=== PATIENT | male | born 1990 | race Caucasian/White ===

== ENCOUNTER 2016-08-16 12:17 | Inpatient (IN) | payer BC, OTHER ==
[2016-08-16 14:22] VITALS: BMI 22.3
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
[2016-08-16] MEDS ORDERED: diphenhydrAMINE HCL 50 MG CAPSULE PO PRN (19:37)
[2016-08-16] MEDS ORDERED: MAG HYDROX/AL HYDROX/SIMETH 30 ML UNIT-DOSE CUP PO PRN (19:37)
[2016-08-16] MEDS ORDERED: MAGNESIUM CITRATE 300 ML BOTTLE PO PRN (19:37)
[2016-08-16] MEDS ORDERED: METHADONE HCL 10 MG TABLET (FOR DETOX USE ONLY) PO ONE ×2 (19:37→23:00)
[2016-08-16] MEDS ORDERED: P-EPHED 60MG/TRIPROLIDI 2.5MG TABLET PO PRN (19:37)
[2016-08-16] MEDS ORDERED: MENTHOL/PHENOL 1 EACH UD MM PRN (19:37)
[2016-08-16] MEDS ORDERED: MAGNESIUM HYDROX 2400MG/30ML ORAL SUSPENSION 30 ML CUP PO PRN (19:37)
[2016-08-16] MEDS ORDERED: LOPERAMIDE HCL 2 MG CAPSULE PO PRN (19:37)
[2016-08-16] MEDS ORDERED: diazePAM 5 MG TABLET PO ONE (19:37)
[2016-08-16] MEDS ORDERED: ACETAMINOPHEN 325 MG TABLET (FP) PO PRN (19:37)
[2016-08-16] MEDS ORDERED: guaiFENesin/D-METHORPHAN HB 10 ML UNIT-DOSE CUPS PO PRN (19:37)
[2016-08-16] MEDS ORDERED: NICOTINE POLACRILEX 2 MG GUM BC PRN (19:43)
[2016-08-16] MEDS: diazePAM 5 MG TABLET PO SCH (22:31)
[2016-08-16] MEDS: THIAMINE HCL 100 MG TABLET (FP) PO SCH (22:31)
[2016-08-16] MEDS: IBUPROFEN 400 MG TABLET (FP) PO PRN (22:34)
[2016-08-17] MEDS: diazePAM 5 MG TABLET PO SCH ×3 (07:09→23:12)
[2016-08-17] MEDS ORDERED: METHADONE HCL 10 MG TABLET (FOR DETOX USE ONLY) PO SCH (10:00)
[2016-08-17 10:20] LABS: ALBUMIN 4.4 g/dl (3.4-5.0); ALK PHOS 61 U/L (45-117); ANION GAP 4 (8-16); BILIRUBIN,TOTAL 0.4 mg/dL (0.2-1.0); CALCIUM 9.6 mg/dL (8.5-10.1); CO2 31 mmol/L (21-32); CREATININE 1.1 mg/dL (0.7-1.3); GLUCOSE,RANDOM 93 mg/dL (74-106); SGOT/AST 20 U/L (15-37); SGPT/ALT 18 U/L (12-78); TOT PROT 7.6 g/dl (6.4-8.2)
[2016-08-17] MEDS: diazePAM 5 MG TABLET PO PRN ×2 (10:32→22:51)
[2016-08-17] MEDS: PRENATAL VITAMINS W/ FOLIC ACID TABLET (FP) PO SCH (10:32)
[2016-08-17] MEDS: NICOTINE 21 MG/24 HOURS TOPICAL PATCH TD SCH (10:33)
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
[2016-08-17 10:56] LABS: HIV 1 & 2 AB NEGATIVE; HIV 1 AGp24 NEGATIVE
[2016-08-17 11:08] LABS: MCHC 33.5 g/dl (32.0-35.9); MEAN CELL VOLUME 86.6 fl (80-96); MEAN PLT VOLUME 8.8 fl (7.5-11.1); PLATELET COUNT 267 K/MM3 (134-434); RDW 12.7 % (11.9-15.9); WHITE BLOOD COUNT 8.4 K/mm3 (4.0-10.0)
--- NOTE | 2016-08-17 11:24 | PN ---
[facility] CIWA - CIWA Score Nausea/Vomitin-Mild Nausea/No Vomiting Muscle Tremors: 4-Moderate,w/Arms Extend Anxiety: 3 Agitation: 4-Moderately Restless Paroxysmal Sweats: 3 Orientation: 0-Oriented Tacttile Disturbances: 0-None Auditory Disturbances: 0-None Visual Disturbances: 0-None Headache: 0-None Present CIWA-Ar Total Score: 15 BHS COWS - Scale Resting Pulse: 1= [place] 81-100 Sweatin=Flushed/Facial Moisture Restless Observation: 1= Difficult to Sit Still Pupil Size: 0= Normal to Room Light Bone or Joint Aches: 2= Severe Diffuse Aches Runny Nose/ Eye Tearin= Runny Nose/Eyes GI Upset > 30mins: 2= Nausea/Diarrhea Tremor Observation of Outstretched Hands: 2= Slight Tremor Visible Yawning Observation: 2= >3x During Session Anxiety or Irritability: 2=Irritable/Anxious Goose Flesh Skin: 0=Smooth Skin COWS Score: 16 S Progress Note (SOAP) Subjective: agitation anxiety sweats shakes interrupted sleep body aches irritable nausea Objective: 08/17/16 11:23 Vital Signs Temperature 97.2 F L 08/17/16 10:08 Pulse Rate 76 08/17/16 10:08 Respiratory Rate 16 08/17/16 10:08 Blood Pressure 121/67 08/17/16 10:08 O2 Sat by Pulse Oximetry (%) Laboratory Tests 08/16/16 08/17/16 08/17/16 06:00 06:00 06:00 WBC 8.4 RBC 4.93 Hgb 14.3 Hct 42.7 MCV 86.6 MCHC 33.5 RDW 12.7 Plt Count 267 MPV 8.8 Sodium 140 Potassium 4.9 Chloride 105 Carbon Dioxide 31 Anion Gap 4 L BUN 17 D Creatinine 1.1 Creat Clearance w eGFR > 60 Random Glucose 93 Calcium 9.6 Total Bilirubin 0.4 D AST 20 D ALT 18 Alkaline Phosphatase 61 Total Protein 7.6 Albumin 4.4 HIV 1&2 Antibody Screen Negative HIV P24 Antigen Negative labs pending awake/alert ambulating no acute distress Assessment: 08/17/16 11:23 withdrawal sx Plan: continue detox increase fluids labs pending
[2016-08-17] MEDS ORDERED: INFLUENZA VACCINE 45 MCG/0.5 ML (MDV 16-17) IM ONE (12:00)
[2016-08-17] MEDS: THIAMINE HCL 100 MG TABLET (FP) PO SCH (22:55)
--- NOTE | 2016-08-18 09:53 | PN ---
S COWS - Scale Resting Pulse: 1= [place] 81-100 Sweatin=Flushed/Facial Moisture Restless Observation: 3= Extraneous Movement Pupil Size: 1= Pupils >than Normal Bone or Joint Aches: 2= Severe Diffuse Aches Runny Nose/ Eye Tearin= Runny Nose/Eyes GI Upset > 30mins: 2= Nausea/Diarrhea Tremor Observation of Outstretched Hands: 2= Slight Tremor Visible Yawning Observation: 1= 1-2x During Session Anxiety or Irritability: 2=Irritable/Anxious Goose Flesh Skin: 0=Smooth Skin COWS Score: 18 BHS Progress Note (SOAP) Subjective: ALERT,IRRITABLE,ANXIOUS,INTERRUPTED SLEEP,TREMOR,PAIN IN THE BODY AND BACK Objective: 08/18/16 09:48 Vital Signs Temperature 98.1 F 08/18/16 09:30 Pulse Rate 87 08/18/16 09:30 Respiratory Rate 20 08/18/16 09:30 Blood Pressure 137/68 08/18/16 09:30 O2 Sat by Pulse Oximetry (%) Laboratory Last Values WBC 8.4 K/mm3 (4.0-10.0) 08/17/16 06:00 RBC 4.93 M/mm3 (4.00-5.60) 08/17/16 06:00 Hgb 14.3 GM/dL (11.7-16.9) 08/17/16 06:00 Hct 42.7 % (35.4-49) 08/17/16 06:00 MCV 86.6 fl (80-96) 08/17/16 06:00 MCHC 33.5 g/dl (32.0-35.9) 08/17/16 06:00 RDW 12.7 % (11.9-15.9) 08/17/16 06:00 Plt Count 267 K/MM3 (134-434) 08/17/16 06:00 MPV 8.8 fl (7.5-11.1) 08/17/16 06:00 Sodium 140 mmol/L (136-145) 08/17/16 06:00 Potassium 4.9 mmol/L (3.5-5.1) 08/17/16 06:00 Chloride 105 mmol/L (98-107) 08/17/16 06:00 Carbon Dioxide 31 mmol/L (21-32) 08/17/16 06:00 Anion Gap 4 (8-16) L 08/17/16 06:00 BUN 17 mg/dL (7-18) D 08/17/16 06:00 Creatinine 1.1 mg/dL (0.7-1.3) 08/17/16 06:00 Creat Clearance w eGFR > 60 (>60) 08/17/16 06:00 Random Glucose 93 mg/dL (74-106) 08/17/16 06:00 Calcium 9.6 mg/dL (8.5-10.1) 08/17/16 06:00 Total Bilirubin 0.4 mg/dL (0.2-1.0) D 08/17/16 06:00 AST 20 U/L (15-37) D 08/17/16 06:00 ALT 18 U/L (12-78) 08/17/16 06:00 Alkaline Phosphatase 61 U/L (45-117) 08/17/16 06:00 Total Protein 7.6 g/dl (6.4-8.2) 08/17/16 06:00 Albumin 4.4 g/dl (3.4-5.0) 08/17/16 06:00 RPR Titer Nonreactive (NONREACTIVE) 08/17/16 06:00 Hepatitis C Antibody >11.0 s/co ratio (0.0-0.9) H 08/17/16 06:00 HIV 1&2 Antibody Screen Negative 08/16/16 06:00 HIV P24 Antigen Negative 08/16/16 06:00 PATIENT HAS HISTORY OF HEPATITIA C FOR 2 MONTHS HAS BEEN FOLLOWED UP BY PMD AND SPECIALIST Assessment: 08/18/16 09:53 WITHDRAWAL SYMPTOM Plan: CONTINUE DETOX
[2016-08-18] MEDS: PRENATAL VITAMINS W/ FOLIC ACID TABLET (FP) PO SCH (09:55)
[2016-08-18] MEDS: diazePAM 5 MG TABLET PO SCH ×3 (09:55→23:32)
[2016-08-18] MEDS ORDERED: CYCLOBENZAPRINE HCL 10 MG TABLET (FP) PO ONE (09:55)
[2016-08-18] MEDS: METHADONE HCL 5 MG TABLET (FOR DETOX USE ONLY) PO SCH (09:55)
--- NOTE | 2016-08-18 10:34 | EKG ---
Test Reason : Blood Pressure : / mmHG Vent. Rate : 083 BPM Atrial Rate : 083 BPM P-R Int : 174 ms QRS Dur : 112 ms QT Int : 386 ms P-R-T Axes : 064 051 063 degrees QTc Int : 453 ms NORMAL SINUS RHYTHM NORMAL ECG NO PREVIOUS ECGS AVAILABLE Confirmed by DEVEN EDWARDS MD ([id number]) on 08/18/2016 10:34:02 AM Referred By: Tanner Mitchell Confirmed By:DEVEN EDWARDS MD
[2016-08-18] MEDS: cloNIDine HCL 0.1 MG TABLET PO SCH ×2 (11:35→23:06)
[2016-08-18] MEDS: NICOTINE 21 MG/24 HOURS TOPICAL PATCH TD SCH (11:37)
[2016-08-18] MEDS: diazePAM 5 MG TABLET PO PRN ×2 (15:22→19:50)
[2016-08-18] MEDS: CYCLOBENZAPRINE HCL 10 MG TABLET (FP) PO PRN (18:45)
[2016-08-18] MEDS: THIAMINE HCL 100 MG TABLET (FP) PO SCH (23:07)
[2016-08-19] MEDS: METHADONE HCL 5 MG TABLET (FOR DETOX USE ONLY) PO SCH (10:13)
[2016-08-19] MEDS: cloNIDine HCL 0.1 MG TABLET PO SCH ×2 (10:13→22:55)
[2016-08-19] MEDS: NICOTINE 21 MG/24 HOURS TOPICAL PATCH TD SCH (10:14)
[2016-08-19] MEDS: PRENATAL VITAMINS W/ FOLIC ACID TABLET (FP) PO SCH (10:14)
[2016-08-19] MEDS: diazePAM 5 MG TABLET PO SCH ×2 (10:14→22:55)
[2016-08-19 10:21] LABS: URINE APPEARANCE CLEAR; URINE BILIRUBIN NEGATIVE (NEGATIVE); URINE BLOOD NEGATIVE (NEGATIVE); URINE COLOR LTYELLOW; URINE GLUCOSE (UA) NEGATIVE (NEGATIVE); URINE KETONE NEGATIVE (NEGATIVE); URINE LEUK ESTERASE NEGATIVE (NEGATIVE); URINE NITRITE NEGATIVE (NEGATIVE); URINE PROTEIN NEGATIVE (NEGATIVE); URINE UROBILINOGEN NEGATIVE E.U./dl (0.2-1.0)
--- NOTE | 2016-08-19 11:45 | PN ---
BHS Progress Note (SOAP) Subjective: ALERT,IRRITABLE,ANXIOUS,INTERRUPTED SLEEP,PAIN IN THE BODY Objective: 08/19/16 11:44 Vital Signs Temperature 97.2 F L 08/19/16 10:18 Pulse Rate 79 08/19/16 10:18 Respiratory Rate 18 08/19/16 10:18 Blood Pressure 126/60 08/19/16 10:18 O2 Sat by Pulse Oximetry (%) Assessment: 08/19/16 11:45 WITHDRAWAL SYMPTOM Plan: CONTINUE DETOX
[2016-08-19] MEDS: diazePAM 5 MG TABLET PO PRN (16:46)
[2016-08-19] MEDS: IBUPROFEN 400 MG TABLET (FP) PO PRN (16:48)
[2016-08-19] MEDS: CYCLOBENZAPRINE HCL 10 MG TABLET (FP) PO PRN (19:33)
[2016-08-19] MEDS: THIAMINE HCL 100 MG TABLET (FP) PO SCH (22:55)
[2016-08-20] MEDS ORDERED: diazePAM 5 MG TABLET PO SCH (10:00)
[2016-08-20] MEDS ORDERED: METHADONE HCL 10 MG TABLET (FOR DETOX USE ONLY) PO SCH (10:00)
--- NOTE | 2016-08-20 10:00 | DS ---
[facility] Detox Discharge Summary Admission Date: 08/16/16 Discharge Date: 08/20/16 - History Present History: Cannabis Dependence, Opioid Dependence, Sedative Dependence - Physical Exam Results Vital Signs: Vital Signs Temperature 97.7 F 08/20/16 06:00 Pulse Rate 55 L 08/20/16 06:00 Respiratory Rate 16 08/20/16 06:00 Blood Pressure 117/58 08/20/16 06:00 O2 Sat by Pulse Oximetry (%) - Treatment Hospital Course: Detox Protocol Followed, Detoxed Safely, Responded well, Discharged Condition Good - Diagnosis (1) Cannabis dependence Current Visit: Yes Status: Chronic (2) Opioid dependence with withdrawal Current Visit: Yes Status: Chronic (3) Sedative, hypnotic or anxiolytic dependence with withdrawal, uncomplicated Current Visit: Yes Status: Chronic (4) Weight decreased Current Visit: Yes Status: Chronic (5) S/P mitral valve replacement with porcine valve Current Visit: No Status: Chronic (6) anxiety and depresion Current Visit: Yes Status: Chronic (7) Sedative dependence Current Visit: Yes Status: Chronic - AMA Did Patient Leave Against Medical Advice: No
[2016-08-20] MEDS: NICOTINE 21 MG/24 HOURS TOPICAL PATCH TD SCH (10:17)
[2016-08-20] MEDS: PRENATAL VITAMINS W/ FOLIC ACID TABLET (FP) PO SCH (10:17)
[2016-08-20] MEDS: cloNIDine HCL 0.1 MG TABLET PO SCH (10:17)
[2016-08-20 10:18] VITALS: BP 118/86; PULSE 82; TEMP 99.3
[2016-08-21] MEDS ORDERED: METHADONE HCL 5 MG TABLET (FOR DETOX USE ONLY) PO SCH (06:00)
== END 2016-08-20 11:00 | disposition home or self-care (01) | DRG 897 ==
LOC: YASAS 12:17 → Y6N 17:44
PROVIDERS: ADMIT Internal Medicine Addiction Medicine; ATTEND Internal Medicine Addiction Medicine
PROC: HZ2ZZZZ Detoxification Services for Substance Abuse Treatment (ICD-10-PCS; principal; 2016-08-16)
DX: F11.23 Opioid dependence with withdrawal (principal); F19.280 Other psychoactive substance dependence with psychoactive substance-induced anxiety disorder; F13.230 Sedative, hypnotic or anxiolytic dependence with withdrawal, uncomplicated; F12.20 Cannabis dependence, uncomplicated; F17.210 Nicotine dependence, cigarettes, uncomplicated; F41.8 Other specified anxiety disorders; B18.2 Chronic viral hepatitis C; R00.0 Tachycardia, unspecified; Z95.2 Presence of prosthetic heart valve; Z87.898 Personal history of other specified conditions; Z86.79 Personal history of other diseases of the circulatory system
CPT/HCPCS: 36415; 80053; 81003; 85027; 86593; 86803; 87389; 87522; 93005; 93010

== ENCOUNTER 2016-12-02 08:40 | Inpatient (IN) | payer BC ==
[2016-12-02 09:58] VITALS: BMI 22.4
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
[2016-12-02] MEDS ORDERED: MAG HYDROX/AL HYDROX/SIMETH 30 ML UNIT-DOSE CUP PO PRN (11:19)
[2016-12-02] MEDS ORDERED: METHADONE HCL 10 MG TABLET (FOR DETOX USE ONLY) PO ONE ×3 (11:19→23:00)
[2016-12-02] MEDS ORDERED: diazePAM 5 MG TABLET PO ONE (11:19)
[2016-12-02] MEDS ORDERED: ACETAMINOPHEN 325 MG TABLET (FP) PO PRN (11:19)
[2016-12-02] MEDS ORDERED: diphenhydrAMINE HCL 50 MG CAPSULE PO PRN (11:19)
[2016-12-02] MEDS ORDERED: diazePAM 5 MG TABLET PO PRN (11:19)
[2016-12-02] MEDS ORDERED: MENTHOL/PHENOL 1 EACH UD MM PRN (11:19)
[2016-12-02] MEDS ORDERED: IBUPROFEN 400 MG TABLET (FP) PO PRN (11:19)
[2016-12-02] MEDS ORDERED: MAGNESIUM HYDROX 2400MG/30ML ORAL SUSPENSION 30 ML CUP PO PRN (11:19)
[2016-12-02] MEDS ORDERED: NICOTINE POLACRILEX 2 MG GUM BUC PRN (11:19)
[2016-12-02] MEDS ORDERED: LOPERAMIDE HCL 2 MG CAPSULE PO PRN (11:19)
[2016-12-02] MEDS ORDERED: guaiFENesin/D-METHORPHAN HB 10 ML UNIT-DOSE CUPS PO PRN (11:19)
[2016-12-02] MEDS ORDERED: P-EPHED 60MG/TRIPROLIDI 2.5MG TABLET PO PRN (11:19)
[2016-12-02] MEDS ORDERED: hydrOXYzine PAMOATE 50 MG CAPSULE (FP) PO PRN (11:19)
[2016-12-02] MEDS ORDERED: MAGNESIUM CITRATE 300 ML BOTTLE PO PRN (11:19)
[2016-12-02] MEDS: RANITIDINE HCL 150 MG TABLET (FP) PO SCH ×2 (14:16→22:31)
[2016-12-02] MEDS: diazePAM 5 MG TABLET PO SCH ×2 (14:17→22:31)
[2016-12-02] MEDS: NICOTINE 21 MG/24 HOURS TOPICAL PATCH TD SCH (14:21)
[2016-12-02 19:39] LABS: URINE APPEARANCE CLEAR; URINE BILIRUBIN NEGATIVE (NEGATIVE); URINE BLOOD NEGATIVE (NEGATIVE); URINE COLOR YELLOW; URINE GLUCOSE (UA) NEGATIVE (NEGATIVE); URINE KETONE NEGATIVE (NEGATIVE); URINE LEUK ESTERASE NEGATIVE (NEGATIVE); URINE NITRITE NEGATIVE (NEGATIVE); URINE PROTEIN NEGATIVE (NEGATIVE); URINE UROBILINOGEN NEGATIVE E.U./dl (0.2-1.0)
[2016-12-02] MEDS ORDERED: ROPINIROLE HCL 5 MG PO SCH (22:00)
[2016-12-02] MEDS: THIAMINE HCL 100 MG TABLET (FP) PO SCH (22:31)
[2016-12-02] MEDS: ROPINIROLE HCL PO SCH (22:34)
[2016-12-03] MEDS: diazePAM 5 MG TABLET PO SCH ×3 (06:05→22:59)
[2016-12-03] MEDS ORDERED: METHADONE HCL 10 MG TABLET (FOR DETOX USE ONLY) PO SCH (10:00)
[2016-12-03 10:06] LABS: MCH 28.8 pg (25.7-33.7); MCHC 33.6 g/dl (32.0-35.9); MEAN CELL VOLUME 85.8 fl (80-96); MEAN PLT VOLUME 8.5 fl (7.5-11.1); PLATELET COUNT 195 K/MM3 (134-434); RDW 13.8 % (11.9-15.9); WHITE BLOOD COUNT 5.2 K/mm3 (4.0-10.0)
[2016-12-03] MEDS: NICOTINE 21 MG/24 HOURS TOPICAL PATCH TD SCH (10:24)
[2016-12-03] MEDS: RANITIDINE HCL 150 MG TABLET (FP) PO SCH ×2 (10:24→22:59)
[2016-12-03] MEDS: ROPINIROLE HCL PO SCH ×2 (10:24→22:59)
[2016-12-03] MEDS: PRENATAL VITAMINS W/ FOLIC ACID TABLET (FP) PO SCH (10:24)
[2016-12-03 10:33] LABS: ALBUMIN 3.6 g/dl (3.4-5.0); ALK PHOS 46 U/L (45-117); ANION GAP 7 (8-16); BILIRUBIN,TOTAL 0.2 mg/dL (0.2-1.0); CALCIUM 8.8 mg/dL (8.5-10.1); CO2 27 mmol/L (21-32); COCKROFT - GAULT 159.86; CREATININE 0.8 mg/dL (0.7-1.3); GLUCOSE,RANDOM 95 mg/dL (74-106); SGOT/AST 16 U/L (15-37); SGPT/ALT 17 U/L (12-78); TOT PROT 6.7 g/dl (6.4-8.2)
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
[2016-12-03 10:52] LABS: HIV 1 & 2 AB NEGATIVE; HIV 1 AGp24 NEGATIVE
--- NOTE | 2016-12-03 11:12 | EKG ---
Test Reason : Blood Pressure : / mmHG Vent. Rate : 070 BPM Atrial Rate : 070 BPM P-R Int : 186 ms QRS Dur : 106 ms QT Int : 404 ms P-R-T Axes : 054 046 050 degrees QTc Int : 436 ms NORMAL SINUS RHYTHM NORMAL ECG WHEN COMPARED WITH ECG OF 16-AUG-2016 20:19, NO SIGNIFICANT CHANGE WAS FOUND Confirmed by TAM BARNETT MD ([id number]) on 12/03/2016 11:11:45 AM Referred By: Confirmed By:TAM BARNETT MD
[2016-12-03] MEDS ORDERED: ONDANSETRON *ODT* 4 MG TABLET SL PRN (12:11)
--- NOTE | 2016-12-03 12:19 | PN ---
[facility] CIWA - CIWA Score Nausea/Vomitin Muscle Tremors: 4-Moderate,w/Arms Extend Anxiety: 4-Mod. Anxious/Guarded Agitation: 4-Moderately Restless Paroxysmal Sweats: 3 Orientation: 0-Oriented Tacttile Disturbances: 0-None Auditory Disturbances: 0-None Visual Disturbances: 0-None Headache: 0-None Present CIWA-Ar Total Score: 18 S COWS - Scale Resting Pulse: 0= [place] 80 or Below Sweatin=Flushed/Facial Moisture Restless Observation: 1= Difficult to Sit Still Pupil Size: 0= Normal to Room Light Bone or Joint Aches: 2= Severe Diffuse Aches Runny Nose/ Eye Tearin= Runny Nose/Eyes GI Upset > 30mins: 2= Nausea/Diarrhea Tremor Observation of Outstretched Hands: 2= Slight Tremor Visible Yawning Observation: 1= 1-2x During Session Anxiety or Irritability: 2=Irritable/Anxious Goose Flesh Skin: 0=Smooth Skin COWS Score: 14 [facility] Progress Note (SOAP) Subjective: Anxiety,tremors,sweating,interrupted sleep,restless,nausea,muscle aches. Objective: 12/03/16 12:15 Vital Signs - 8 hr 12/03/16 06:18 Temperature 95.9 F L Pulse Rate 76 Respiratory 16 Rate Blood Pressure 116/67 Laboratory Last Values WBC 5.2 K/mm3 (4.0-10.0) D 12/03/16 07:00 RBC 4.65 M/mm3 (4.00-5.60) 12/03/16 07:00 Hgb 13.4 GM/dL (11.7-16.9) 12/03/16 07:00 Hct 39.9 % (35.4-49) 12/03/16 07:00 MCV 85.8 fl (80-96) 12/03/16 07:00 MCHC 33.6 g/dl (32.0-35.9) 12/03/16 07:00 RDW 13.8 % (11.9-15.9) 12/03/16 07:00 Plt Count 195 K/MM3 (134-434) D 12/03/16 07:00 MPV 8.5 fl (7.5-11.1) 12/03/16 07:00 Sodium 140 mmol/L (136-145) 12/03/16 07:00 Potassium 4.5 mmol/L (3.5-5.1) 12/03/16 07:00 Chloride 106 mmol/L (98-107) 12/03/16 07:00 Carbon Dioxide 27 mmol/L (21-32) 12/03/16 07:00 Anion Gap 7 (8-16) L 12/03/16 07:00 BUN 11 mg/dL (7-18) D 12/03/16 07:00 Creatinine 0.8 mg/dL (0.7-1.3) D 12/03/16 07:00 Creat Clearance w eGFR > 60 (>60) 12/03/16 07:00 Random Glucose 95 mg/dL (74-106) 12/03/16 07:00 Calcium 8.8 mg/dL (8.5-10.1) 12/03/16 07:00 Total Bilirubin 0.2 mg/dL (0.2-1.0) D 12/03/16 07:00 AST 16 U/L (15-37) 12/03/16 07:00 ALT 17 U/L (12-78) 12/03/16 07:00 Alkaline Phosphatase 46 U/L (45-117) D 12/03/16 07:00 Total Protein 6.7 g/dl (6.4-8.2) 12/03/16 07:00 Albumin 3.6 g/dl (3.4-5.0) 12/03/16 07:00 Urine Color Yellow 12/02/16 19:00 Urine Appearance Clear 12/02/16 19:00 Urine pH 5.0 (5.0-8.0) D 12/02/16 19:00 Ur Specific [place] 1.016 (1.001-1.035) 12/02/16 19:00 Urine Protein Negative (NEGATIVE) 12/02/16 19:00 Urine Glucose (UA) Negative (NEGATIVE) 12/02/16 19:00 Urine Ketones Negative (NEGATIVE) 12/02/16 19:00 Urine Blood Negative (NEGATIVE) 12/02/16 19:00 Urine Nitrite Negative (NEGATIVE) 12/02/16 19:00 Urine Bilirubin Negative (NEGATIVE) 12/02/16 19:00 Urine Urobilinogen Negative E.U./dl (0.2-1.0) 12/02/16 19:00 Ur Leukocyte Esterase Negative (NEGATIVE) 12/02/16 19:00 RPR Titer Nonreactive (NONREACTIVE) 12/03/16 07:00 HIV 1&2 Antibody Screen Negative 12/03/16 07:00 HIV P24 Antigen Negative 12/03/16 07:00 labs noted Assessment: 12/03/16 12:16 Withdrawal sx. Plan: Continue detox
[2016-12-03] MEDS ORDERED: QUEtiapine FUMARATE 100 MG TABLET (FP) PO SCH (22:00)
[2016-12-03] MEDS: THIAMINE HCL 100 MG TABLET (FP) PO SCH (22:59)
[2016-12-04 09:34] VITALS: BP 137/79; PULSE 81; TEMP 97.6
[2016-12-04] MEDS ORDERED: diazePAM 5 MG TABLET PO SCH (10:00)
[2016-12-04] MEDS ORDERED: METHADONE HCL 5 MG TABLET (FOR DETOX USE ONLY) PO SCH (10:00)
[2016-12-04] MEDS: ROPINIROLE HCL PO SCH (10:10)
[2016-12-04] MEDS: NICOTINE 21 MG/24 HOURS TOPICAL PATCH TD SCH (10:10)
[2016-12-04] MEDS: PRENATAL VITAMINS W/ FOLIC ACID TABLET (FP) PO SCH (10:10)
[2016-12-04] MEDS: RANITIDINE HCL 150 MG TABLET (FP) PO SCH (10:10)
--- NOTE | 2016-12-04 10:29 | PN ---
[facility] CIWA - CIWA Score Nausea/Vomitin-No Nausea/No Vomiting Muscle Tremors: 4-Moderate,w/Arms Extend Anxiety: 4-Mod. Anxious/Guarded Agitation: 4-Moderately Restless Paroxysmal Sweats: 1-Minimal Palms Moist Orientation: 0-Oriented Tacttile Disturbances: 3-Moderate Itch/Numb/Burn Auditory Disturbances: 0-None Visual Disturbances: 0-None Headache: 0-None Present CIWA-Ar Total Score: 16 S COWS - Scale Resting Pulse: 1= [place] 81-100 Sweatin= Chills/Flushing Restless Observation: 3= Extraneous Movement Pupil Size: 2= Moderately Dilated Bone or Joint Aches: 4=Acute Joint/Muscle Pain Runny Nose/ Eye Tearin= Nasal Congestion GI Upset > 30mins: 1= Stomach Cramp Tremor Observation of Outstretched Hands: 2= Slight Tremor Visible Yawning Observation: 1= 1-2x During Session Anxiety or Irritability: 2=Irritable/Anxious Goose Flesh Skin: 0=Smooth Skin COWS Score: 18 S Progress Note (SOAP) Subjective: ANXIETY,SWEATS,INTERMITTENT SLEEP Objective: 12/04/16 10:28 Vital Signs Temperature 97.6 F 12/04/16 09:31 Pulse Rate 81 12/04/16 09:31 Respiratory Rate 20 12/04/16 09:31 Blood Pressure 137/79 12/04/16 09:31 O2 Sat by Pulse Oximetry (%) Laboratory Last Values WBC 5.2 K/mm3 (4.0-10.0) D 12/03/16 07:00 RBC 4.65 M/mm3 (4.00-5.60) 12/03/16 07:00 Hgb 13.4 GM/dL (11.7-16.9) 12/03/16 07:00 Hct 39.9 % (35.4-49) 12/03/16 07:00 MCV 85.8 fl (80-96) 12/03/16 07:00 MCHC 33.6 g/dl (32.0-35.9) 12/03/16 07:00 RDW 13.8 % (11.9-15.9) 12/03/16 07:00 Plt Count 195 K/MM3 (134-434) D 12/03/16 07:00 MPV 8.5 fl (7.5-11.1) 12/03/16 07:00 Sodium 140 mmol/L (136-145) 12/03/16 07:00 Potassium 4.5 mmol/L (3.5-5.1) 12/03/16 07:00 Chloride 106 mmol/L (98-107) 12/03/16 07:00 Carbon Dioxide 27 mmol/L (21-32) 12/03/16 07:00 Anion Gap 7 (8-16) L 12/03/16 07:00 BUN 11 mg/dL (7-18) D 12/03/16 07:00 Creatinine 0.8 mg/dL (0.7-1.3) D 12/03/16 07:00 Creat Clearance w eGFR > 60 (>60) 12/03/16 07:00 Random Glucose 95 mg/dL (74-106) 12/03/16 07:00 Calcium 8.8 mg/dL (8.5-10.1) 12/03/16 07:00 Total Bilirubin 0.2 mg/dL (0.2-1.0) D 12/03/16 07:00 AST 16 U/L (15-37) 12/03/16 07:00 ALT 17 U/L (12-78) 12/03/16 07:00 Alkaline Phosphatase 46 U/L (45-117) D 12/03/16 07:00 Total Protein 6.7 g/dl (6.4-8.2) 12/03/16 07:00 Albumin 3.6 g/dl (3.4-5.0) 12/03/16 07:00 Urine Color Yellow 12/02/16 19:00 Urine Appearance Clear 12/02/16 19:00 Urine pH 5.0 (5.0-8.0) D 12/02/16 19:00 Ur Specific [place] 1.016 (1.001-1.035) 12/02/16 19:00 Urine Protein Negative (NEGATIVE) 12/02/16 19:00 Urine Glucose (UA) Negative (NEGATIVE) 12/02/16 19:00 Urine Ketones Negative (NEGATIVE) 12/02/16 19:00 Urine Blood Negative (NEGATIVE) 12/02/16 19:00 Urine Nitrite Negative (NEGATIVE) 12/02/16 19:00 Urine Bilirubin Negative (NEGATIVE) 12/02/16 19:00 Urine Urobilinogen Negative E.U./dl (0.2-1.0) 12/02/16 19:00 Ur Leukocyte Esterase Negative (NEGATIVE) 12/02/16 19:00 RPR Titer Nonreactive (NONREACTIVE) 12/03/16 07:00 HIV 1&2 Antibody Screen Negative 12/03/16 07:00 HIV P24 Antigen Negative 12/03/16 07:00 Assessment: 12/04/16 10:29 WITHDRAWAL SX Plan: CONTINUE DETOX
--- NOTE | 2016-12-04 13:11 | DS ---
[facility] Detox Discharge Summary Admission Date: 12/02/16 Discharge Date: 12/04/16 - History Present History: Opioid Dependence, Sedative Dependence Additional Comments: PT DECLINED TO CONTINUE WITH DETOX STATING "I JUST WANT TO LEAVE". Pertinent Past History: HEP C S/P ENDOCARDITIS RESTLESS LEG SYNDROME - Physical Exam Results Vital Signs: Vital Signs Temperature 97.6 F 12/04/16 09:31 Pulse Rate 81 12/04/16 09:31 Respiratory Rate 20 12/04/16 09:31 Blood Pressure 137/79 12/04/16 09:31 O2 Sat by Pulse Oximetry (%) Pertinent Admission Physical Exam Findings: WITHDRAWAL SX - Treatment Hospital Course: Discharged Condition Good - Medication Discharge Medications: Ambulatory Orders Gabapentin 800 mg PO QID 12/02/16 Quetiapine Fumarate [Seroquel] 150 tab PO HS 12/02/16 Ropinirole HCl [Requip] 5 mg PO BID 12/02/16 Quetiapine Fumarate [Seroquel] 100 mg PO HS #30 tablet 12/03/16 - Diagnosis (1) Nicotine dependence Status: Acute Qualifiers: Nicotine product type: cigarettes Substance use status: in withdrawal Qualified Code(s): F17.213 - Nicotine dependence, cigarettes, with withdrawal (2) Opioid dependence with withdrawal Status: Acute (3) Sedative, hypnotic or anxiolytic dependence with withdrawal, uncomplicated Status: Acute (4) Hep C w/o coma, chronic Status: Chronic (5) Seizure Status: Suspected (6) Substance induced mood disorder Status: Acute (7) Restless leg syndrome Status: Chronic (8) Cocaine dependence Status: Acute (9) S/P mitral valve replacement with porcine valve Status: Chronic (10) s/p surgery for endocarditis Status: Chronic (11) Substance-induced anxiety disorder Status: Suspected - AMA Did Patient Leave Against Medical Advice: Yes
[2016-12-06] MEDS ORDERED: diazePAM 5 MG TABLET PO SCH (10:00)
[2016-12-06] MEDS ORDERED: METHADONE HCL 10 MG TABLET (FOR DETOX USE ONLY) PO SCH (10:00)
[2016-12-07] MEDS ORDERED: METHADONE HCL 5 MG TABLET (FOR DETOX USE ONLY) PO SCH (06:00)
== END 2016-12-04 11:20 | disposition left against medical advice (07) | DRG 894 ==
LOC: YASAS 08:40 → Y6N 11:18 → Y3N 13:19
PROVIDERS: ADMIT Internal Medicine; ATTEND Internal Medicine
PROC: HZ2ZZZZ Detoxification Services for Substance Abuse Treatment (ICD-10-PCS; principal; 2016-12-04)
DX: F11.23 Opioid dependence with withdrawal (principal); F14.20 Cocaine dependence, uncomplicated; F19.20 Other psychoactive substance dependence, uncomplicated; F13.230 Sedative, hypnotic or anxiolytic dependence with withdrawal, uncomplicated; F17.213 Nicotine dependence, cigarettes, with withdrawal; F19.24 Other psychoactive substance dependence with psychoactive substance-induced mood disorder; G25.81 Restless legs syndrome; R56.9 Unspecified convulsions; Z95.4 Presence of other heart-valve replacement
CPT/HCPCS: 36415; 80053; 81003; 85027; 86593; 87389; 93005; 93010

== ENCOUNTER 2017-03-16 21:04 | Inpatient (IN) | payer BC ==
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
[2017-03-16 21:12] VITALS: BMI 23.1
[2017-03-16] MEDS ORDERED: MAGNESIUM CITRATE 300 ML BOTTLE PO PRN (21:19)
[2017-03-16] MEDS ORDERED: IBUPROFEN 400 MG TABLET (FP) PO PRN (21:19)
[2017-03-16] MEDS ORDERED: P-EPHED 60MG/TRIPROLIDI 2.5MG TABLET PO PRN (21:19)
[2017-03-16] MEDS ORDERED: METHADONE HCL 10 MG TABLET (FOR DETOX USE ONLY) PO ONE ×2 (21:19→23:00)
[2017-03-16] MEDS ORDERED: NICOTINE POLACRILEX 4 MG GUM BC PRN (21:19)
[2017-03-16] MEDS ORDERED: ACETAMINOPHEN 325 MG TABLET (FP) PO PRN (21:19)
[2017-03-16] MEDS ORDERED: diazePAM 5 MG TABLET PO ONE (21:19)
[2017-03-16] MEDS ORDERED: diphenhydrAMINE HCL 50 MG CAPSULE PO PRN (21:19)
[2017-03-16] MEDS ORDERED: diazePAM 5 MG TABLET PO PRN (21:19)
[2017-03-16] MEDS ORDERED: hydrOXYzine PAMOATE 25 MG CAPSULE (FP) PO PRN (21:19)
[2017-03-16] MEDS ORDERED: guaiFENesin/D-METHORPHAN HB 10 ML UNIT-DOSE CUPS PO PRN (21:19)
[2017-03-16] MEDS ORDERED: MAG HYDROX/AL HYDROX/SIMETH 30 ML UNIT-DOSE CUP PO PRN (21:19)
[2017-03-16] MEDS ORDERED: LOPERAMIDE HCL 2 MG CAPSULE PO PRN (21:19)
[2017-03-16] MEDS ORDERED: MAGNESIUM HYDROX 2400MG/30ML ORAL SUSPENSION 30 ML CUP PO PRN (21:19)
[2017-03-16] MEDS ORDERED: MENTHOL/PHENOL 1 EACH UD MM PRN (21:19)
[2017-03-16] MEDS ORDERED: THIAMINE HCL 100 MG TABLET (FP) PO SCH (22:00)
[2017-03-16] MEDS: diazePAM 5 MG TABLET PO SCH (23:46)
[2017-03-17] MEDS: diazePAM 5 MG TABLET PO SCH ×2 (06:05→13:57)
[2017-03-17] MEDS ORDERED: METHADONE HCL 10 MG TABLET (FOR DETOX USE ONLY) PO SCH (10:00)
[2017-03-17] MEDS ORDERED: NICOTINE 21 MG/24 HOURS TOPICAL PATCH TD SCH (10:00)
[2017-03-17] MEDS ORDERED: PRENATAL VITAMINS W/ FOLIC ACID TABLET (FP) PO SCH (10:00)
[2017-03-17 14:53] VITALS: BP 123/70; PULSE 84; TEMP 98.1
--- NOTE | 2017-03-17 15:15 | PN ---
S CIWA - CIWA Score Nausea/Vomitin Muscle Tremors: 4-Moderate,w/Arms Extend Anxiety: 4-Mod. Anxious/Guarded Agitation: 4-Moderately Restless Paroxysmal Sweats: 3 Orientation: 0-Oriented Tacttile Disturbances: 1-Very Mild Itch/Numbness Auditory Disturbances: 0-None Visual Disturbances: 0-None Headache: 1-Very Mild CIWA-Ar Total Score: 22 BHS COWS - Scale Resting Pulse: 1= [place] 81-100 Sweatin= Chills/Flushing Restless Observation: 3= Extraneous Movement Pupil Size: 0= Normal to Room Light Bone or Joint Aches: 2= Severe Diffuse Aches Runny Nose/ Eye Tearin= Runny Nose/Eyes GI Upset > 30mins: 3= Vomiting/Diarrhea Tremor Observation of Outstretched Hands: 2= Slight Tremor Visible Yawning Observation: 1= 1-2x During Session Anxiety or Irritability: 2=Irritable/Anxious Goose Flesh Skin: 0=Smooth Skin COWS Score: 17 BHS Progress Note (SOAP) Subjective: Body ache, tremor, chills, n/v, interrupted sleep Objective: 03/17/17 15:12 Last Vital Signs Temp Pulse Resp BP Pulse Ox 98.1 F 84 18 123/70 03/17/17 14:52 03/17/17 14:52 03/17/17 14:52 03/17/17 14:52 Admission labs: patient refused, reordered in AM Assessment: 03/17/17 15:13 Withdrawal symptoms Plan: Continue detox Encouraged to drink lots of water Follow up on admission labs
--- NOTE | 2017-03-17 16:10 | DS ---
[facility] Detox Discharge Summary Admission Date: 03/16/17 Discharge Date: 03/17/17 - History Present History: Opioid Dependence, Sedative Dependence Pertinent Past History: Hepatitis C - Physical Exam Results Vital Signs: Vital Signs Temperature 98.1 F 03/17/17 14:52 Pulse Rate 84 03/17/17 14:52 Respiratory Rate 18 03/17/17 14:52 Blood Pressure 123/70 03/17/17 14:52 O2 Sat by Pulse Oximetry (%) Pertinent Admission Physical Exam Findings: Withdrawal symptoms Patient refused admission labs - Diagnosis (1) Anxiety and depression Status: Chronic (2) Nicotine dependence Status: Chronic Qualifiers: Nicotine product type: cigarettes Substance use status: in withdrawal Qualified Code(s): F17.213 - Nicotine dependence, cigarettes, with withdrawal (3) Opioid dependence with withdrawal Status: Acute (4) Sedative, hypnotic or anxiolytic dependence with withdrawal, uncomplicated Status: Acute - AMA Did Patient Leave Against Medical Advice: Yes
[2017-03-18] MEDS ORDERED: diazePAM 5 MG TABLET PO SCH (10:00)
[2017-03-18] MEDS ORDERED: METHADONE HCL 5 MG TABLET (FOR DETOX USE ONLY) PO SCH (10:00)
[2017-03-20] MEDS ORDERED: diazePAM 5 MG TABLET PO SCH (10:00)
[2017-03-20] MEDS ORDERED: METHADONE HCL 10 MG TABLET (FOR DETOX USE ONLY) PO SCH (10:00)
--- NOTE | 2017-03-20 14:53 | EKG ---
Test Reason : Blood Pressure : / mmHG Vent. Rate : 082 BPM Atrial Rate : 082 BPM P-R Int : 166 ms QRS Dur : 116 ms QT Int : 388 ms P-R-T Axes : 029 041 060 degrees QTc Int : 453 ms NORMAL SINUS RHYTHM INCOMPLETE RIGHT BUNDLE BRANCH BLOCK BORDERLINE ECG WHEN COMPARED WITH ECG OF 02-DEC-2016 13:02, NO SIGNIFICANT CHANGE WAS FOUND Confirmed by PARAMJIT DEAN MD ([id number]) on 03/20/2017 2:52:49 PM Referred By: Confirmed By:PARAMJIT DEAN MD
[2017-03-21] MEDS ORDERED: METHADONE HCL 5 MG TABLET (FOR DETOX USE ONLY) PO SCH (06:00)
== END 2017-03-17 15:39 | disposition left against medical advice (07) | DRG 894 ==
LOC: YASAS 21:04 → Y6N 21:09 → Y3N 21:32
PROVIDERS: ADMIT Internal Medicine; ATTEND Internal Medicine
PROC: HZ2ZZZZ Detoxification Services for Substance Abuse Treatment (ICD-10-PCS; principal; 2017-03-16)
DX: F11.23 Opioid dependence with withdrawal (principal); F13.230 Sedative, hypnotic or anxiolytic dependence with withdrawal, uncomplicated; F17.213 Nicotine dependence, cigarettes, with withdrawal; F41.9 Anxiety disorder, unspecified; F32.9 Major depressive disorder, single episode, unspecified; B18.2 Chronic viral hepatitis C
CPT/HCPCS: 93005; 93010